=== PATIENT | male | born 1965 | race African-American/Black ===

== ENCOUNTER 2023-05-18 20:23 | Emergency (ER) | payer OTHER, SELFPAY ==
[~2023-05-18] VITALS: Ht 180.3 cm; Wt 90.9 kg
[2023-05-18] MEDS: LIDOCAINE 2% 5ML JELLY UROJET TOP ONE (20:40)
[2023-05-18] MEDS: ONDANSETRON 4MG 2ML VIAL IV ONE (21:33)
[2023-05-18 21:52] LABS: EOS % 0.1 % (0.0-3.0); HEMATOCRIT 42.1 % (42.0-52.0); HEMOGLOBIN 13.2 g/dl (13.5-17.5); LYMPH # 1.2 10^3/uL (1.5-5.0); LYMPH % 17.1 % (24.0-44.0); MEAN CORPUSCULAR HEMOGLOBIN 22.8 pg (27.0-33.0); MEAN CORPUSCULAR HGB CONC 31.4 g/dl (32.0-36.5); MEAN CORPUSCULAR VOLUME 72.6 fl (80.0-96.0); MONO # 0.6 10^3/uL (0.0-0.8); MONO % 8.1 % (2.0-8.0); NEUTROPHILS # 5.2 10^3/uL (1.5-8.5); NEUTROPHILS % 74.4 % (36.0-66.0); PLATELET COUNT, AUTOMATED 299 10^3/uL (150-450); WHITE BLOOD COUNT 6.9 10^3/uL (4.0-10.0)
[2023-05-18 22:06] LABS: INR 1.14; PROTHROMBIN TIME 14.3 SECONDS (12.5-14.5)
[2023-05-18 22:12] LABS: CK-MB VALUE MASS 1.4 NG/ML (<3.6); LIPASE 14 U/L (12-53)
[2023-05-18 22:14] LABS: ALBUMIN 3.7 G/DL (3.2-5.2); ALKALINE PHOSPHATASE 69 U/L (46-116); ALT/SGPT 17 U/L (7.0-40); AST/SGOT 19 U/L (<34); BILIRUBIN,DIRECT 0.2 MG/DL (<0.4); BILIRUBIN,TOTAL 0.4 MG/DL (0.3-1.2); BLOOD UREA NITROGEN 11 MG/DL (9-23); CALCIUM LEVEL 8.9 MG/DL (8.5-10.1); CARBON DIOXIDE LEVEL 24 MMOL/L (20-31); CHLORIDE LEVEL 110 MMOL/L (98-107); CPK CREATINE PHOSPHOKINASE 273 U/L (46-171); CREATININE FOR GFR 0.85 MG/DL (0.70-1.30); GLOMERULAR FILTRATION RATE > 60.0 (>56); GLUCOSE, FASTING 110 MG/DL (60-100); MB/CK RELATIVE INDEX 0.51 (< OR =4); POTASSIUM SERUM 4.5 MMOL/L (3.5-5.1); SODIUM LEVEL 137 MMOL/L (136-145); TOTAL PROTEIN 6.9 G/DL (5.7-8.2)
[2023-05-18 22:37] LABS: RSV AMPLIFICATION NEGATIVE (NEGATIVE)
[2023-05-18] MEDS ORDERED: KETOROLAC 30 MG/ML 1ML VIAL IV ONE (22:40)
[2023-05-18] MEDS ORDERED: FINA-48 PO (22:52)
[2023-05-18] MEDS ORDERED: FLOM0.4C39 PO (22:52)
[2023-05-18 23:00] VITALS: BP 145/80
[2023-05-18 23:15] VITALS: TEMP 97.3; O2SAT 96
== END 2023-05-18 23:17 | disposition home or self-care (01) ==
LOC: M ED 20:23 → EDBD 20:23 → M ED 23:17
DX: R33.9 Retention of urine, unspecified (principal); I44.0 Atrioventricular block, first degree; I45.81 Long QT syndrome; Y92.148 Other place in prison as the place of occurrence of the external cause; Y93.89 Activity, other specified; Y99.9 Unspecified external cause status; Z79.83 Long term (current) use of bisphosphonates; Z79.899 Other long term (current) drug therapy
CPT/HCPCS: 74176; 76705; 80048; 80076; 81001; 82550; 82553; 83605; 83690; 84484; 85025; 85610; 85730; 87631; 93005; 96374; 99284; J2405

== ENCOUNTER 2023-05-22 00:11 | Emergency (ER) | payer OTHER ==
[~2023-05-22] VITALS: Ht 180.3 cm; Wt 90.9 kg
[~2023-05-22 00:11] MED LIST: FINA-48 PO; FLOM0.4C39 PO
[2023-05-22 01:35] LABS: BASO % 0.2 % (0.0-1.0); HEMATOCRIT 42.5 % (42.0-52.0); HEMOGLOBIN 13.3 g/dl (13.5-17.5); LYMPH # 1.3 10^3/uL (1.5-5.0); MEAN CORPUSCULAR HEMOGLOBIN 22.7 pg (27.0-33.0); MEAN CORPUSCULAR HGB CONC 31.3 g/dl (32.0-36.5); MEAN CORPUSCULAR VOLUME 72.5 fl (80.0-96.0); MONO # 0.6 10^3/uL (0.0-0.8); MONO % 9.1 % (2.0-8.0); NEUTROPHILS # 4.5 10^3/uL (1.5-8.5); NEUTROPHILS % 70.5 % (36.0-66.0); PLATELET COUNT, AUTOMATED 281 10^3/uL (150-450); RED BLOOD COUNT 5.86 10^6/uL (4.30-6.10); WHITE BLOOD COUNT 6.4 10^3/uL (4.0-10.0)
[2023-05-22 01:47] LABS: INR 1.09; PROTHROMBIN TIME 13.8 SECONDS (12.5-14.5)
[2023-05-22 01:48] LABS: PARTIAL THROMBOPLASTIN TIME 27.4 SECONDS (24.8-34.2)
[2023-05-22] MEDS: METOCLOPRAMIDE INJ 10MG/2ML VIAL IV ONE (02:01)
[2023-05-22] MEDS: ACETAMINOPHEN *IV* 1,000 MG in IV 1 EA IV ONE (02:01)
[2023-05-22 02:13] LABS: CK-MB VALUE MASS 1.3 NG/ML (<3.6); MB/CK RELATIVE INDEX 0.4 (< OR =4)
[2023-05-22 02:46] LABS: LIPASE 17 U/L (12-53)
[2023-05-22 03:01] LABS: ALBUMIN 3.3 G/DL (3.2-5.2); ALKALINE PHOSPHATASE 59 U/L (46-116); ALT/SGPT 12 U/L (7.0-40); AST/SGOT 16 U/L (<34); BILIRUBIN,DIRECT 0.1 MG/DL (<0.4); BILIRUBIN,TOTAL 0.4 MG/DL (0.3-1.2); BLOOD UREA NITROGEN 13 MG/DL (9-23); CALCIUM LEVEL 8.1 MG/DL (8.5-10.1); CARBON DIOXIDE LEVEL 27 MMOL/L (20-31); CHLORIDE LEVEL 104 MMOL/L (98-107); CK-MB VALUE MASS 1.2 NG/ML (<3.6); CPK CREATINE PHOSPHOKINASE 242 U/L (46-171); CREATININE FOR GFR 0.67 MG/DL (0.70-1.30); GLOMERULAR FILTRATION RATE > 60.0 (>56); GLUCOSE, FASTING 110 MG/DL (60-100); MB/CK RELATIVE INDEX 0.49 (< OR =4); POTASSIUM SERUM 3.8 MMOL/L (3.5-5.1); SODIUM LEVEL 136 MMOL/L (136-145); TOTAL PROTEIN 6.3 G/DL (5.7-8.2)
[2023-05-22] MEDS: hydrALAZINE 20MG/ML 1ML VIAL IV PRN (04:14)
[2023-05-22] MEDS: MORPHINE 4 MG/ML 1ML VIAL IV PRN (04:28)
[2023-05-22] MEDS ORDERED: hydrALAZINE 20MG/ML 1ML VIAL IV PRN (07:35)
[2023-05-22] MEDS: NS 1,000 ML IV ONE (07:43)
[2023-05-22 09:18] VITALS: BP 154/76
[2023-05-22 10:35] VITALS: BP 124/61; TEMP 97.8; O2SAT 99
[2023-05-22] MEDS ORDERED: MORPHINE 4 MG/ML 1ML VIAL As Ordered ONE (10:43)
[2023-05-22] MEDS: MORPHINE 4 MG/ML 1ML VIAL IV ONE (10:46)
== END 2023-05-22 10:40 | disposition short-term general hospital (02) ==
LOC: M ED 00:11
DX: I61.9 Nontraumatic intracerebral hemorrhage, unspecified (principal); R00.1 Bradycardia, unspecified; N40.0 Benign prostatic hyperplasia without lower urinary tract symptoms; F17.200 Nicotine dependence, unspecified, uncomplicated; Z79.83 Long term (current) use of bisphosphonates; Z79.899 Other long term (current) drug therapy
CPT/HCPCS: 70450; 71045; 80048; 80076; 82550; 82553; 83605; 83690; 84484; 85025; 85610; 85730; 87486; 87581; 87633; 87798; 93005; 93041; 96365; 96366; 96375; 96376; 99285; J0131; J0360; J2765